=== PATIENT | male | born 1980 | race Native Hawaiian/Other Pacific Islander ===

== ENCOUNTER 2022-01-25 08:36 | Observation (INO) | payer OTHER ==
--- NOTE | 2022-01-25 08:43 | ERPHSYRPT ---
- History of Present Illness Time Seen by Provider: 01/25/22 08:42 Historian: patient Exam Limitations: no limitations Physician History: This is a 41-year-old white male patient has no known drug allergies, takes no medications chronically and has had no abdominal surgeries and presents to the emergency room with 3-day history of persistent, unchanging right lower quadrant abdominal pain. He has not had diarrhea. His last bowel movement was this morning and it was black. He is nauseated but has not been vomiting. He has not had fevers. He has no chest pain he has not had cough. Timing/Duration: day(s) (3) Activities at Onset: none Quality: sharpness Abdominal Pain Onset Location: RLQ Pain Radiation: no radiation Severity of Pain-Max: moderate Severity of Pain-Current: moderate Modifying Factors: Improves With: nothing Associated Symptoms: loss of appetite, nausea, No chest pain, No diarrhea, No fever/chills, No shortness of breath, No vomiting Previous symptoms: no prior history Allergies/Adverse Reactions: No Known Drug Allergies Allergy (Verified 01/25/22 08:40) Home Medications: No Reportable Medications [No Reported Medications] 01/25/22 [History] Travel Risk - International Travel Have you traveled outside of the country in past 3 weeks: No - Coronavirus Screening Are you exhibiting any of the following symptoms?: No Close contact with a COVID-19 positive Pt in past 14-21 Days: No - Review of Systems Constitutional: No Symptoms Eyes: No Symptoms Ears, Nose, & Throat: No Symptoms Respiratory: No Symptoms Cardiac: No Symptoms Abdominal/Gastrointestinal: Abdominal Pain (Right lower quadrant), Nausea, No Vomiting, No Diarrhea, No Constipation Genitourinary Symptoms: No Symptoms Musculoskeletal: No Symptoms Skin: No Symptoms Neurological: No Symptoms Psychological: No Symptoms Endocrine: No Symptoms Hematologic/Lymphatic: No Symptoms Immunological/Allergic: No Symptoms All Other Systems: Reviewed and Negative - Past Medical History Pertinent Past Medical History: No - Past Surgical History Past Surgical History: No - Nursing Vital Signs Nursing Vital Signs: Initial Vital Signs Temperature 98.3 F 01/25/22 08:42 Pulse Rate 105 H 01/25/22 08:42 Respiratory Rate 20 01/25/22 08:42 Blood Pressure 134/85 01/25/22 08:42 O2 Sat by Pulse Oximetry 98 01/25/22 08:42 Pain Scale Pain Intensity 5 - Physical Exam General Appearance: no apparent distress, alert, anxiety Eye Exam: PERRL/EOMI, eyes nml inspection Ears, Nose, Throat Exam: normal ENT inspection, moist mucous membranes Neck Exam: normal inspection, non-tender, supple, full range of motion Respiratory Exam: normal breath sounds, lungs clear, airway intact, No chest tenderness, No respiratory distress Cardiovascular Exam: regular rate/rhythm, normal heart sounds, normal peripheral pulses Gastrointestinal/Abdomen Exam: soft, normal bowel sounds, tenderness (Right lower quadrant), guarding (Right lower quadrant), rebound Rectal Exam: not done Back Exam: normal inspection, normal range of motion, No CVA tenderness, No vertebral tenderness Extremity Exam: normal inspection, normal range of motion, pelvis stable Neurologic Exam: alert, oriented x 3, cooperative, computerized table cutter II-XII nml as tested, normal mood/affect, nml cerebellar function, nml station & gait, sensation nml Skin Exam: normal color, warm, dry Lymphatic Exam: No adenopathy SpO2 Interpretation: normal O2 Delivery: Room Air - Course Nursing assessment & vital signs reviewed: Yes Ordered Tests: Active Orders 24 hr Category Date Time Status ABDOMEN AND PELVIS W/0 CONTRAS [CT] Stat Exams 01/25/22 08:55 Taken AMYLASE Stat Lab 01/25/22 09:00 Completed CBC W DIFF Stat Lab 01/25/22 09:00 Completed CMP Stat Lab 01/25/22 09:00 Completed LIPASE Stat Lab 01/25/22 09:00 Completed Lactic Acid Stat Lab 01/25/22 09:00 Completed UA W/RFX CULTURE Stat Lab 01/25/22 Ordered Transfer Order Routine Transfer 01/25/22 Ordered Medication Summary Generic Name Dose Route Start Last Admin Trade Name Freq PRN Reason Stop Dose Admin Piperacillin Sod/Tazobactam 100 mls @ 200 mls/hr 01/25/22 10:37 01/25/22 10:43 Sod 3.375 gm/ Sodium Chloride IV 01/25/22 11:06 200 mls/hr STAT ONE Administration Discontinued Medications Generic Name Dose Route Start Last Admin Trade Name Freq PRN Reason Stop Dose Admin Hydromorphone HCl 0.5 mg 01/25/22 08:55 01/25/22 09:13 Hydromorphone 1 Mg/1ml Inj 1 Mg/Ml Syringe IV 01/25/22 08:56 0.5 mg STAT ONE Administration Hydromorphone HCl Confirm 01/25/22 09:07 Hydromorphone 1 Mg/1ml Inj 1 Mg/Ml Syringe Administered 01/25/22 09:08 Dose 1 mg .ROUTE .STK-MED ONE Sodium Chloride Confirm 01/25/22 10:42 Sodium Chloride 100ml Mini-Bag Plus Administered 01/25/22 10:43 Dose 100 mls @ ud IV .STK-MED ONE Ondansetron HCl 4 mg 01/25/22 08:55 01/25/22 09:02 Zofran 4 Mg/Udtablet Orally Disintegrating PO 01/25/22 08:56 4 mg STAT ONE Administration Ondansetron HCl Confirm 01/25/22 09:01 Zofran 4 Mg/Udtablet Orally Disintegrating Administered 01/25/22 09:02 Dose 4 mg .ROUTE .STK-MED ONE Pantoprazole Sodium 40 mg 01/25/22 08:55 01/25/22 09:02 Pantoprazole 40 Mg Vial IV 01/25/22 08:56 40 mg STAT ONE Administration Pantoprazole Sodium Confirm 01/25/22 09:01 Pantoprazole 40 Mg Vial Administered 01/25/22 09:02 Dose 40 mg IV .STK-MED ONE Piperacillin Sod/Tazobactam Sod Confirm 01/25/22 10:42 Piperacillin/Tazobactam Sodium 3.375 Gm Vial Administered 01/25/22 10:43 Dose 3.375 gm IV .STK-MED ONE Lab/Rad Data: Laboratory Result Diagrams 01/25/22 09:00 01/25/22 09:00 Laboratory Results 01/25/22 01/25/22 01/25/22 Range/Units 09:00 09:00 09:00 WBC 12.6 H (4.0-10.5) x10^3/uL RBC 5.12 (4.1-5.6) x10^6/uL Hgb 16.1 (12.5-18.0) g/dL Hct 46.9 (42-50) % MCV 91.6 (78-100) fL MCH 31.4 (26-32) pg MCHC 34.3 (32-36) g/dL RDW 12.5 (11.5-14.0) % Plt Count 205 (150-450) x10^3/uL MPV 11.1 H (7.5-11.0) fL Gran % 80.3 H (36.0-66.0) % Immature Gran % (Auto) 0.3 (0.00-0.4) % Nucleat RBC Rel Count 0.0 (0.00-0.1) % Eos # (Auto) 0.03 (0-0.5) x10^3/uL Immature Gran # (Auto) 0.04 H (0.00-0.03) x10^3u/L Absolute Lymphs (auto) 1.58 (1.0-4.6) x10^3/uL Absolute Monos (auto) 0.82 (0.0-1.3) x10^3/uL Absolute Nucleated RBC 0.00 (0.00-0.01) x10^3u/L Lymphocytes % 12.5 L (24.0-44.0) % Monocytes % 6.5 (0.0-12.0) % Eosinophils % 0.2 (0.00-5.0) % Basophils % 0.2 (0.0-0.4) % Absolute Granulocytes 10.09 H (1.4-6.9) x10^3/uL Basophils # 0.03 (0-0.4) x10^3/uL Sodium 136 L (137-145) mmol/L Potassium 3.5 (3.5-5.1) mmol/L Chloride 99 (98-107) mmol/L Carbon Dioxide 26 (22-30) mmol/L Anion Gap 14.8 (5-15) MEQ/L BUN 16 (9-20) mg/dL Creatinine 0.70 (0.66-1.25) mg/dL Estimated GFR > 60.0 ML/MIN Glucose 138 H (74-106) mg/dL Lactic Acid 1.7 (0.4-2.0) Calcium 9.5 (8.4-10.2) mg/dL Total Bilirubin 1.50 H (0.2-1.3) mg/dL AST 18 (17-59) U/L ALT 25 (0-50) U/L Alkaline Phosphatase 105 (38-126) U/L Serum Total Protein 8.5 H (6.3-8.2) g/dL Albumin 4.9 (3.5-5.0) g/dL Amylase 68 (30-110) U/L Lipase 50 (23-300) U/L - Progress Progress: improved, pain not gone completely Progress Note: 01/25/22 10:36 ct scan a/p without positive for acute appendicitis 01/25/22 10:51 Medical decision making: This patient has acute appendicitis. I spoke with surgeon Dr. Edge who will take this patient to the operating room today to perform an appendectomy. Patient will be admitted to Dr. Bryant. I spoke with Dr. Bryant as well. We will place him on n.p.o., intravenous fluid and his intravenous antibiotics. We will provide her with antiemetics and pain medication. We have contacted the nurse corrugator supervisor to make them aware that Dr. Umanzor will be in this afternoon to perform the appendectomy. The exact time is unknown. Discussed with : Stephanie Ahumada Counseled pt/family regarding: lab results, diagnosis, rad results - Departure Departure Disposition: In-patient Admission Clinical Impression: Acute appendicitis Condition: Stable Critical Care Time: No Referrals: ERIC MORRIS [Primary Care Provider] - Follow up/PCP as directed
[2022-01-25] MEDS ORDERED: PROTONIX 40 MG IV IV ONE ×2 (08:55→09:01)
[2022-01-25] MEDS ORDERED: Hydromorphone 1 mg/ml Injection IV ONE ×3 (08:55→13:07)
[2022-01-25] MEDS ORDERED: ZOFRAN ODT 4 MG PO ONE (08:55)
[2022-01-25] MEDS ORDERED: ZOFRAN ODT 4 MG ONE (09:01)
[2022-01-25 09:06] LABS: Absolute Neutrophil Ct (ANC) 10.09 x10^3/uL (1.4-6.9); Basophil (Absolute #) 0.03 x10^3/uL (0-0.4); Eosinophil % 0.2 % (0.00-5.0); Eosinophil (Absolute #) 0.03 x10^3/uL (0-0.5); Hematocrit 46.9 % (42-50); Hemoglobin 16.1 g/dL (12.5-18.0); Lymphocyte (Absolute #) 1.58 x10^3/uL (1.0-4.6); Lymphocytes % 12.5 % (24.0-44.0); Mean Cell Volume 91.6 fL (78-100); Mean Corpuscular Hemoglobin 31.4 pg (26-32); Mean Corpuscular Hgb Concent. 34.3 g/dL (32-36); Mean Platelet Volume 11.1 fL (7.5-11.0); Monocyte (Absolute #) 0.82 x10^3/uL (0.0-1.3); Monocytes % 6.5 % (0.0-12.0); Neutrophil % 80.3 % (36.0-66.0); Platelet Count 205 x10^3/uL (150-450); Red Blood Count 5.12 x10^6/uL (4.1-5.6); Red Cell Distribution Width 12.5 % (11.5-14.0); White Blood Count 12.6 x10^3/uL (4.0-10.5)
[2022-01-25] MEDS ORDERED: Hydromorphone 1 mg/ml Injection ONE ×2 (09:07→11:00)
[2022-01-25 09:21] LABS: ALBUMIN 4.9 g/dL (3.5-5.0); ALKALINE PHOSPHATASE 105 U/L (38-126); AMYLASE 68 U/L (30-110); ANION GAP 14.8 MEQ/L (5-15); BLOOD UREA NITROGEN 16 mg/dL (9-20); CHLORIDE 99 mmol/L (98-107); Calcium 9.5 mg/dL (8.4-10.2); Carbon Dioxide 26 mmol/L (22-30); EST GLOMERULAR FILTRATION RATE > 60.0 ML/MIN; Glucose 138 mg/dL (74-106); LIPASE 50 U/L (23-300); Potassium 3.5 mmol/L (3.5-5.1); SGOT/AST 18 U/L (17-59); SGPT/ALT 25 U/L (0-50); SODIUM 136 mmol/L (137-145); Total Protein 8.5 g/dL (6.3-8.2)
[2022-01-25] MEDS ORDERED: PIPERACILLIN/TAZOBACTAM 3.375 GM in Sodium Chloride 100ML MINI-BAG PLUS 100 ML IV ONE (10:37)
[2022-01-25] MEDS ORDERED: Sodium Chloride 100ML MINI-BAG PLUS 100 ML IV ONE (10:42)
[2022-01-25] MEDS ORDERED: PIPERACILLIN/TAZOBACTAM IV ONE (10:42)
[2022-01-25 11:38] LABS: INFLUENZA A NEGATIVE (NEGATIVE); INFLUENZA B NEGATIVE (NEGATIVE); RESPIRATORY SYNCTIAL VIRUS NEGATIVE (Negative); SARS-CoV-2 Xpert Express NEGATIVE (NEGATIVE)
[2022-01-25] MEDS ORDERED: Hydromorphone 1 mg/ml Injection IV PRN (12:40)
[2022-01-25] MEDS ORDERED: Zofran 4 MG/2 ML VIAL IV PRN (12:40)
[2022-01-25] MEDS ORDERED: FEVERALL 650 MG PR PRN (12:40)
[2022-01-25] MEDS: Sodium Chloride 0.9% 1000 ML 1,000 ML IV SCH ×2 (12:49→17:16)
[2022-01-25] MEDS: PIPERACILLIN/TAZOBACTAM 3.375 GM in Sodium Chloride 100ML MINI-BAG PLUS 100 ML IV SCH ×3 (13:04→23:55)
[2022-01-25] MEDS ORDERED: PHARMACY DOSING REQUIRED: DILAUDID PCA IV PRN (13:36)
[2022-01-25] MEDS ORDERED: HYDROMORPHONE 30 MG/30 ML-NS IV PRN (13:49)
[2022-01-25] MEDS ORDERED: MEFOXIN 2 GM PREMIX** 2 GM/50 ML ML IV SCH (14:30)
[2022-01-25] MEDS ORDERED: Sensorcaine 0.25% 10 ML ONE (14:44)
[2022-01-25] MEDS ORDERED: BRIDION 200MG/2ML IV ONE (14:58)
[2022-01-25] MEDS ORDERED: TORAdol 30 mg Injection ONE (14:58)
[2022-01-25] MEDS ORDERED: DIPRIVAN 200 MG/20 ML IV ONE (14:58)
[2022-01-25] MEDS ORDERED: Decadron 4 MG INJ ONE (14:58)
[2022-01-25] MEDS ORDERED: Xylocaine-Mpf 2% 5 Ml Vial ONE (14:58)
[2022-01-25] MEDS ORDERED: Zofran 4 MG/2 ML VIAL ONE (14:58)
[2022-01-25] MEDS ORDERED: Zemuron 100 MG/10 ML ONE (14:58)
[2022-01-25] MEDS ORDERED: SUBLIMAZE 100 MCG/2 ML ONE ×2 (14:58→15:29)
[2022-01-25] MEDS ORDERED: Lactated Ringers 1,000 ML IV SCH (15:00)
[2022-01-25] MEDS ORDERED: MORPHINE SULFATE 4 MG INJ IV PRN (16:51)
[2022-01-25] MEDS: NORCO 5/325 MG PO PRN ×2 (18:09→22:22)
[2022-01-25 20:42] LABS: Appearance CLEAR (CLEAR)
[2022-01-25 20:43] LABS: Bilirubin NEGATIVE (NEGATIVE); Dipstick done @ ? MAIN LAB; Glucose NEGATIVE (NEGATIVE); Ketones MODERATE-40 (NEGATIVE); Nitrite NEGATIVE (NEGATIVE); Protein,Urine Dip TRACE (Negative); RBC NEGATIVE Ery/ul (0-5); Specific Gravity 1.015 (1.005-1.025); Urobilinogen 0.2 mg/dL (0-1)
[2022-01-25 20:44] LABS: Mucus SLIGHT /HPF (NEGATIVE); RBC 0-2 /HPF (0-2)
[2022-01-25 20:45] LABS: Urine Cultured Indicated? NO
--- NOTE | 2022-01-25 20:50 | XRAY ---
Indication: Right lower quadrant pain and nausea. Multiple contiguous axial images obtained through the abdomen and pelvis without contrast. Comparison: None Lung bases clear. Heart not enlarged. Noncontrasted stomach and bowel loops appear nonobstructed. The distal appendix is prominent up to 1.5 cm with periappendiceal stranding favoring acute appendicitis. No free fluid/air. Remaining liver, gallbladder, pancreas, spleen, adrenal glands, kidneys, ureters, bladder, and aorta are unremarkable for noncontrast exam. Osseous structures intact. Impression: CT findings as detailed favoring acute appendicitis. Comment: Preliminary interpretation made by [facility]. No critical discrepancy.
[2022-01-26] MEDS: NORCO 5/325 MG PO PRN ×5 (03:52→22:11)
[2022-01-26] MEDS: PIPERACILLIN/TAZOBACTAM 3.375 GM in Sodium Chloride 100ML MINI-BAG PLUS 100 ML IV SCH ×3 (05:37→18:46)
[2022-01-26] MEDS: Sodium Chloride 0.9% 1000 ML 1,000 ML IV SCH ×2 (05:37→19:22)
[2022-01-26 06:01] LABS: Absolute Neutrophil Ct (ANC) 10.23 x10^3/uL (1.4-6.9); Basophil (Absolute #) 0.02 x10^3/uL (0-0.4); Eosinophil (Absolute #) 0 x10^3/uL (0-0.5); Hematocrit 46.2 % (42-50); Hemoglobin 15.2 g/dL (12.5-18.0); Lymphocyte (Absolute #) 0.77 x10^3/uL (1.0-4.6); Lymphocytes % 6.6 % (24.0-44.0); Mean Cell Volume 96.5 fL (78-100); Mean Corpuscular Hemoglobin 31.7 pg (26-32); Mean Corpuscular Hgb Concent. 32.9 g/dL (32-36); Mean Platelet Volume 11.5 fL (7.5-11.0); Monocyte (Absolute #) 0.58 x10^3/uL (0.0-1.3); Neutrophil % 87.9 % (36.0-66.0); Platelet Count 180 x10^3/uL (150-450); Red Blood Count 4.79 x10^6/uL (4.1-5.6); White Blood Count 11.6 x10^3/uL (4.0-10.5)
--- NOTE | 2022-01-26 07:40 | PCM.SSS ---
History of Present Illness - Chief Complaint Chief Complaint: acute appendicitis History of Present Illness: 41yo male with no local physician, arrived with abd pain. ct scan showed acute appendicitis. had surgery to remove yesterday, tolerating po and ambulating. no complications. has mild serous fluid in AISSATOU drain. - Review of Systems Constitutional: No Symptoms Respiratory: No Cough, No Short Of Breath Cardiac: No Chest Pain, No Edema, No Syncope Abdominal/Gastrointestinal: Abdominal Pain (post op pain controlled), No Nausea, No Vomiting, No Diarrhea Genitourinary Symptoms: No Dysuria Medications & Allergies Home Medications: Home Medication List Hydrocodone/Acetaminophen [Hydrocodone-Acetamin 5-325 mg] 1 tab PO Q4HPRN PRN #18 tablet MDD 6 01/25/22 [Rx] Allergies/Adverse Reactions: Allergies Allergy/AdvReac Type Severity Reaction Status Date / Time No Known Drug Allergies Allergy Verified 01/25/22 13:10 - Past Medical History Past Medical History: No Pyscho-Social History: Other Comment: PTSD, Patient states that he had his thyroid "radiated" when he was in the but he is unsure why, also states that the wanted to remove his thyroid but he declined and he can not remember the reason why they wanted it removed either - Past Surgical History Past Surgical History: No - Social History Smoking Status: Former smoker Exposure to second hand smoke: No Alcohol: Occasionally Drug Use: marijuana - Physical Exam Vital Signs: Vital Signs - 24 hr Temp Pulse Resp BP Pulse Ox 01/26/22 04:40 97 01/26/22 04:00 97.7 F 99 H 16 120/73 95 01/26/22 03:00 97.1 F 96 H 20 118/63 96 01/25/22 23:00 97.1 F 96 H 20 118/63 96 01/25/22 18:45 97.3 F 108 H 134/69 96 01/25/22 17:45 97.5 F 105 H 16 133/58 94 L 01/25/22 17:13 97.8 F 105 H 18 121/60 93 L 01/25/22 17:03 97 01/25/22 16:45 97.5 F 108 H 18 130/68 97 01/25/22 16:30 97.7 F 108 H 18 132/69 93 L 01/25/22 12:55 97.7 F 105 H 16 139/80 95 01/25/22 12:52 97.7 F 105 H 16 139/80 95 01/25/22 12:04 99 H 20 124/76 95 01/25/22 11:00 92 H 20 112/81 96 01/25/22 10:39 97.7 F 105 H 16 139/80 95 01/25/22 09:40 97 H 16 126/92 98 01/25/22 08:42 98.3 F 105 H 20 134/85 98 General Appearance: no apparent distress Neurologic Exam: alert, oriented x 3 Respiratory Exam: normal breath sounds, lungs clear, No respiratory distress Cardiovascular Exam: regular rate/rhythm, normal heart sounds, normal peripheral pulses Gastrointestinal/Abdomen Exam: soft, other (dressing c/d/i, scant serous fluid in AISSATOU) Results - Labs Lab/Micro Results: Lab Results-Last 24 Hours 01/25/22 01/25/22 01/25/22 Range/Units 09:00 09:00 09:00 WBC 12.6 H (4.0-10.5) x10^3/uL RBC 5.12 (4.1-5.6) x10^6/uL Hgb 16.1 (12.5-18.0) g/dL Hct 46.9 (42-50) % MCV 91.6 (78-100) fL MCH 31.4 (26-32) pg MCHC 34.3 (32-36) g/dL RDW 12.5 (11.5-14.0) % Plt Count 205 (150-450) x10^3/uL MPV 11.1 H (7.5-11.0) fL Gran % 80.3 H (36.0-66.0) % Immature Gran % (Auto) 0.3 (0.00-0.4) % Nucleat RBC Rel Count 0.0 (0.00-0.1) % Eos # (Auto) 0.03 (0-0.5) x10^3/uL Immature Gran # (Auto) 0.04 H (0.00-0.03) x10^3u/L Absolute Lymphs (auto) 1.58 (1.0-4.6) x10^3/uL Absolute Monos (auto) 0.82 (0.0-1.3) x10^3/uL Absolute Nucleated RBC 0.00 (0.00-0.01) x10^3u/L Lymphocytes % 12.5 L (24.0-44.0) % Monocytes % 6.5 (0.0-12.0) % Eosinophils % 0.2 (0.00-5.0) % Basophils % 0.2 (0.0-0.4) % Absolute Granulocytes 10.09 H (1.4-6.9) x10^3/uL Basophils # 0.03 (0-0.4) x10^3/uL Sodium 136 L (137-145) mmol/L Potassium 3.5 (3.5-5.1) mmol/L Chloride 99 (98-107) mmol/L Carbon Dioxide 26 (22-30) mmol/L Anion Gap 14.8 (5-15) MEQ/L BUN 16 (9-20) mg/dL Creatinine 0.70 (0.66-1.25) mg/dL Estimated GFR > 60.0 ML/MIN Glucose 138 H (74-106) mg/dL Lactic Acid 1.7 (0.4-2.0) Calcium 9.5 (8.4-10.2) mg/dL Total Bilirubin 1.50 H (0.2-1.3) mg/dL AST 18 (17-59) U/L ALT 25 (0-50) U/L Alkaline Phosphatase 105 (38-126) U/L Serum Total Protein 8.5 H (6.3-8.2) g/dL Albumin 4.9 (3.5-5.0) g/dL Amylase 68 (30-110) U/L Lipase 50 (23-300) U/L Urinalys Dipstick Clnc Urine Color (YELLOW) Urine Appearance (CLEAR) Urine pH (5-6) Ur Specific [place] (1.005-1.025) POC Urine Protein Conf (Negative) Urine Ketones (NEGATIVE) Urine Nitrite (NEGATIVE) Urine Bilirubin (NEGATIVE) Urine Urobilinogen (0-1) mg/dL Urine Leukocytes (NEGATIVE) Urine WBC (Auto) (0-5) /HPF Urine RBC (Auto) (0-2) /HPF U Epithel Cells (Auto) (FEW) /HPF Urine Bacteria (Auto) (NEGATIVE) /HPF Urine RBC (0-5) Lacho/ul Urine Mucus (Auto) (NEGATIVE) /HPF Ur Culture Indicated? Urine Glucose (NEGATIVE) mg/dL Influenza Type A Ag (NEGATIVE) Influenza Type B Ag (NEGATIVE) RSV (PCR) (Negative) SARS-CoV-2 (PCR) (NEGATIVE) 01/25/22 01/25/22 01/26/22 Range/Units 11:01 20:34 05:59 WBC 11.6 H (4.0-10.5) x10^3/uL RBC 4.79 (4.1-5.6) x10^6/uL Hgb 15.2 (12.5-18.0) g/dL Hct 46.2 (42-50) % MCV 96.5 (78-100) fL MCH 31.7 (26-32) pg MCHC 32.9 (32-36) g/dL RDW 13.0 (11.5-14.0) % Plt Count 180 (150-450) x10^3/uL MPV 11.5 H (7.5-11.0) fL Gran % 87.9 H (36.0-66.0) % Immature Gran % (Auto) 0.3 (0.00-0.4) % Nucleat RBC Rel Count 0.0 (0.00-0.1) % Eos # (Auto) 0 (0-0.5) x10^3/uL Immature Gran # (Auto) 0.04 H (0.00-0.03) x10^3u/L Absolute Lymphs (auto) 0.77 L (1.0-4.6) x10^3/uL Absolute Monos (auto) 0.58 (0.0-1.3) x10^3/uL Absolute Nucleated RBC 0.00 (0.00-0.01) x10^3u/L Lymphocytes % 6.6 L (24.0-44.0) % Monocytes % 5.0 (0.0-12.0) % Eosinophils % 0.0 (0.00-5.0) % Basophils % 0.2 (0.0-0.4) % Absolute Granulocytes 10.23 H (1.4-6.9) x10^3/uL Basophils # 0.02 (0-0.4) x10^3/uL Sodium (137-145) mmol/L Potassium (3.5-5.1) mmol/L Chloride (98-107) mmol/L Carbon Dioxide (22-30) mmol/L Anion Gap (5-15) MEQ/L BUN (9-20) mg/dL Creatinine (0.66-1.25) mg/dL Estimated GFR ML/MIN Glucose (74-106) mg/dL Lactic Acid (0.4-2.0) Calcium (8.4-10.2) mg/dL Total Bilirubin (0.2-1.3) mg/dL AST (17-59) U/L ALT (0-50) U/L Alkaline Phosphatase (38-126) U/L Serum Total Protein (6.3-8.2) g/dL Albumin (3.5-5.0) g/dL Amylase (30-110) U/L Lipase (23-300) U/L Urinalys Dipstick Clnc MAIN LAB Urine Color YELLOW (YELLOW) Urine Appearance CLEAR (CLEAR) Urine pH 6.0 (5-6) Ur Specific [place] 1.015 (1.005-1.025) POC Urine Protein Conf TRACE (Negative) Urine Ketones MODERATE-40 (NEGATIVE) Urine Nitrite NEGATIVE (NEGATIVE) Urine Bilirubin NEGATIVE (NEGATIVE) Urine Urobilinogen 0.2 (0-1) mg/dL Urine Leukocytes NEGATIVE (NEGATIVE) Urine WBC (Auto) 3-5 (0-5) /HPF Urine RBC (Auto) 0-2 (0-2) /HPF U Epithel Cells (Auto) NONE (FEW) /HPF Urine Bacteria (Auto) NONE (NEGATIVE) /HPF Urine RBC NEGATIVE (0-5) Lacho/ul Urine Mucus (Auto) SLIGHT (NEGATIVE) /HPF Ur Culture Indicated? NO Urine Glucose NEGATIVE (NEGATIVE) mg/dL Influenza Type A Ag NEGATIVE (NEGATIVE) Influenza Type B Ag NEGATIVE (NEGATIVE) RSV (PCR) NEGATIVE (Negative) SARS-CoV-2 (PCR) NEGATIVE (NEGATIVE) - Radiology Impressions Radiology Exams & Impressions: Radiology Procedures Category Date Time Status ABDOMEN AND PELVIS W/0 CONTRAS [CT] Stat Exams 01/25/22 08:55 Completed Assessment/Plan (1) Acute appendicitis Current Visit: Yes Status: Acute Assessment & Plan: doing well, home whe n ok with surgery, has rx for augmentin on chart and rx for norco was sent to pharmacy Code(s): K35.80 - UNSPECIFIED ACUTE APPENDICITIS Hospital Summary - Vitals & Intake/Output Vital Signs: Vital Signs Temperature 97.7 F 01/26/22 04:00 Pulse Rate 99 H 01/26/22 04:00 Respiratory Rate 16 01/26/22 04:00 Blood Pressure 120/73 01/26/22 04:00 O2 Sat by Pulse Oximetry 97 01/26/22 04:40 Intake & Output: Intake & Output 01/23/22 01/24/22 01/25/22 01/26/22 11:59 11:59 11:59 11:59 Intake Total 1459 Output Total 565 Balance 894 Weight 94 kg 94 kg - Lab Result Diagrams: 01/26/22 05:59 01/25/22 09:00 Lab Results-Last 24 Hrs: Lab Results-Last 24 Hours 01/25/22 01/25/22 01/25/22 Range/Units 09:00 09:00 09:00 WBC 12.6 H (4.0-10.5) x10^3/uL RBC 5.12 (4.1-5.6) x10^6/uL Hgb 16.1 (12.5-18.0) g/dL Hct 46.9 (42-50) % MCV 91.6 (78-100) fL MCH 31.4 (26-32) pg MCHC 34.3 (32-36) g/dL RDW 12.5 (11.5-14.0) % Plt Count 205 (150-450) x10^3/uL MPV 11.1 H (7.5-11.0) fL Gran % 80.3 H (36.0-66.0) % Immature Gran % (Auto) 0.3 (0.00-0.4) % Nucleat RBC Rel Count 0.0 (0.00-0.1) % Eos # (Auto) 0.03 (0-0.5) x10^3/uL Immature Gran # (Auto) 0.04 H (0.00-0.03) x10^3u/L Absolute Lymphs (auto) 1.58 (1.0-4.6) x10^3/uL Absolute Monos (auto) 0.82 (0.0-1.3) x10^3/uL Absolute Nucleated RBC 0.00 (0.00-0.01) x10^3u/L Lymphocytes % 12.5 L (24.0-44.0) % Monocytes % 6.5 (0.0-12.0) % Eosinophils % 0.2 (0.00-5.0) % Basophils % 0.2 (0.0-0.4) % Absolute Granulocytes 10.09 H (1.4-6.9) x10^3/uL Basophils # 0.03 (0-0.4) x10^3/uL Sodium 136 L (137-145) mmol/L Potassium 3.5 (3.5-5.1) mmol/L Chloride 99 (98-107) mmol/L Carbon Dioxide 26 (22-30) mmol/L Anion Gap 14.8 (5-15) MEQ/L BUN 16 (9-20) mg/dL Creatinine 0.70 (0.66-1.25) mg/dL Estimated GFR > 60.0 ML/MIN Glucose 138 H (74-106) mg/dL Lactic Acid 1.7 (0.4-2.0) Calcium 9.5 (8.4-10.2) mg/dL Total Bilirubin 1.50 H (0.2-1.3) mg/dL AST 18 (17-59) U/L ALT 25 (0-50) U/L Alkaline Phosphatase 105 (38-126) U/L Serum Total Protein 8.5 H (6.3-8.2) g/dL Albumin 4.9 (3.5-5.0) g/dL Amylase 68 (30-110) U/L Lipase 50 (23-300) U/L Urinalys Dipstick Clnc Urine Color (YELLOW) Urine Appearance (CLEAR) Urine pH (5-6) Ur Specific [place] (1.005-1.025) POC Urine Protein Conf (Negative) Urine Ketones (NEGATIVE) Urine Nitrite (NEGATIVE) Urine Bilirubin (NEGATIVE) Urine Urobilinogen (0-1) mg/dL Urine Leukocytes (NEGATIVE) Urine WBC (Auto) (0-5) /HPF Urine RBC (Auto) (0-2) /HPF U Epithel Cells (Auto) (FEW) /HPF Urine Bacteria (Auto) (NEGATIVE) /HPF Urine RBC (0-5) Lacho/ul Urine Mucus (Auto) (NEGATIVE) /HPF Ur Culture Indicated? Urine Glucose (NEGATIVE) mg/dL Influenza Type A Ag (NEGATIVE) Influenza Type B Ag (NEGATIVE) RSV (PCR) (Negative) SARS-CoV-2 (PCR) (NEGATIVE) 01/25/22 01/25/22 01/26/22 Range/Units 11:01 20:34 05:59 WBC 11.6 H (4.0-10.5) x10^3/uL RBC 4.79 (4.1-5.6) x10^6/uL Hgb 15.2 (12.5-18.0) g/dL Hct 46.2 (42-50) % MCV 96.5 (78-100) fL MCH 31.7 (26-32) pg MCHC 32.9 (32-36) g/dL RDW 13.0 (11.5-14.0) % Plt Count 180 (150-450) x10^3/uL MPV 11.5 H (7.5-11.0) fL Gran % 87.9 H (36.0-66.0) % Immature Gran % (Auto) 0.3 (0.00-0.4) % Nucleat RBC Rel Count 0.0 (0.00-0.1) % Eos # (Auto) 0 (0-0.5) x10^3/uL Immature Gran # (Auto) 0.04 H (0.00-0.03) x10^3u/L Absolute Lymphs (auto) 0.77 L (1.0-4.6) x10^3/uL Absolute Monos (auto) 0.58 (0.0-1.3) x10^3/uL Absolute Nucleated RBC 0.00 (0.00-0.01) x10^3u/L Lymphocytes % 6.6 L (24.0-44.0) % Monocytes % 5.0 (0.0-12.0) % Eosinophils % 0.0 (0.00-5.0) % Basophils % 0.2 (0.0-0.4) % Absolute Granulocytes 10.23 H (1.4-6.9) x10^3/uL Basophils # 0.02 (0-0.4) x10^3/uL Sodium (137-145) mmol/L Potassium (3.5-5.1) mmol/L Chloride (98-107) mmol/L Carbon Dioxide (22-30) mmol/L Anion Gap (5-15) MEQ/L BUN (9-20) mg/dL Creatinine (0.66-1.25) mg/dL Estimated GFR ML/MIN Glucose (74-106) mg/dL Lactic Acid (0.4-2.0) Calcium (8.4-10.2) mg/dL Total Bilirubin (0.2-1.3) mg/dL AST (17-59) U/L ALT (0-50) U/L Alkaline Phosphatase (38-126) U/L Serum Total Protein (6.3-8.2) g/dL Albumin (3.5-5.0) g/dL Amylase (30-110) U/L Lipase (23-300) U/L Urinalys Dipstick Clnc MAIN LAB Urine Color YELLOW (YELLOW) Urine Appearance CLEAR (CLEAR) Urine pH 6.0 (5-6) Ur Specific [place] 1.015 (1.005-1.025) POC Urine Protein Conf TRACE (Negative) Urine Ketones MODERATE-40 (NEGATIVE) Urine Nitrite NEGATIVE (NEGATIVE) Urine Bilirubin NEGATIVE (NEGATIVE) Urine Urobilinogen 0.2 (0-1) mg/dL Urine Leukocytes NEGATIVE (NEGATIVE) Urine WBC (Auto) 3-5 (0-5) /HPF Urine RBC (Auto) 0-2 (0-2) /HPF U Epithel Cells (Auto) NONE (FEW) /HPF Urine Bacteria (Auto) NONE (NEGATIVE) /HPF Urine RBC NEGATIVE (0-5) Lacho/ul Urine Mucus (Auto) SLIGHT (NEGATIVE) /HPF Ur Culture Indicated? NO Urine Glucose NEGATIVE (NEGATIVE) mg/dL Influenza Type A Ag NEGATIVE (NEGATIVE) Influenza Type B Ag NEGATIVE (NEGATIVE) RSV (PCR) NEGATIVE (Negative) SARS-CoV-2 (PCR) NEGATIVE (NEGATIVE) - Radiology Exams Ordered Rad Exams-Entire Visit: Radiology Procedures Category Date Time Status ABDOMEN AND PELVIS W/0 CONTRAS [CT] Stat Exams 01/25/22 08:55 Completed - Procedures and Test Procedures and Tests throughout Hospitalization: Therapy Orders & Screens 01/25/22 17:02 Oxygen NASAL CANNULA 2 lpm Comment: Diagnosis: acute appendicitis - Discharge Disposition: Home, Self-Care Condition: Stable Prescriptions: New Hydrocodone/Acetaminophen [Hydrocodone-Acetamin 5-325 mg] 1 tab PO Q4HPRN PRN #18 tablet MDD 6 PRN Reason: Pain Follow up with: ERIC MORRIS [Primary Care Provider] -
[2022-01-27] MEDS: PIPERACILLIN/TAZOBACTAM 3.375 GM in Sodium Chloride 100ML MINI-BAG PLUS 100 ML IV SCH ×3 (00:05→11:59)
[2022-01-27] MEDS: NORCO 5/325 MG PO PRN ×3 (02:05→12:46)
[2022-01-27 05:09] LABS: Absolute Neutrophil Ct (ANC) 5.15 x10^3/uL (1.4-6.9); Basophil (Absolute #) 0.02 x10^3/uL (0-0.4); Eosinophil (Absolute #) 0.07 x10^3/uL (0-0.5); Hematocrit 39.7 % (42-50); Hemoglobin 12.9 g/dL (12.5-18.0); Lymphocyte (Absolute #) 1.65 x10^3/uL (1.0-4.6); Lymphocytes % 22.4 % (24.0-44.0); Mean Cell Volume 95.2 fL (78-100); Mean Corpuscular Hemoglobin 30.9 pg (26-32); Mean Corpuscular Hgb Concent. 32.5 g/dL (32-36); Mean Platelet Volume 11.2 fL (7.5-11.0); Monocyte (Absolute #) 0.44 x10^3/uL (0.0-1.3); Platelet Count 180 x10^3/uL (150-450); Red Blood Count 4.17 x10^6/uL (4.1-5.6); Red Cell Distribution Width 13.2 % (11.5-14.0); White Blood Count 7.4 x10^3/uL (4.0-10.5)
--- NOTE | 2022-01-27 08:23 | PCM.DS ---
Discharge Summary Date of Admission: 01/25/22 12:34 Admitting Physician: GIANNA SMITH Primary Care Provider: ERIC MORRIS Allergies Allergies No Known Drug Allergies Allergy (Verified 01/25/22 13:10) Hospital Summary - Hospital Course Hospital Course: patient admitted with acute appenedicitis, had laparoscopic appendectomy by Dr Martinez. he was kept an extra day due to elevated white blood cell count. he is tolerating po, pain is controlled and no complications post-op - Vitals & Intake/Output Vital Signs: Vital Signs Temperature 96.9 F 01/27/22 07:52 Pulse Rate 92 H 01/27/22 07:52 Respiratory Rate 19 01/27/22 07:52 Blood Pressure 117/63 01/27/22 07:52 O2 Sat by Pulse Oximetry 93 L 01/27/22 07:52 Intake & Output: Intake & Output 01/24/22 01/25/22 01/26/22 01/27/22 11:59 11:59 11:59 11:59 Intake Total 1699 790 Output Total 565 20 Balance 1134 770 Weight 94 kg 94 kg - Lab Result Diagrams: 01/27/22 04:45 01/25/22 09:00 Lab Results-Last 24 Hrs: Lab Results-Last 24 Hours 01/27/22 Range/Units 04:45 WBC 7.4 (4.0-10.5) x10^3/uL RBC 4.17 (4.1-5.6) x10^6/uL Hgb 12.9 (12.5-18.0) g/dL Hct 39.7 L (42-50) % MCV 95.2 (78-100) fL MCH 30.9 (26-32) pg MCHC 32.5 (32-36) g/dL RDW 13.2 (11.5-14.0) % Plt Count 180 (150-450) x10^3/uL MPV 11.2 H (7.5-11.0) fL Gran % 70.0 H (36.0-66.0) % Immature Gran % (Auto) 0.3 (0.00-0.4) % Nucleat RBC Rel Count 0.0 (0.00-0.1) % Eos # (Auto) 0.07 (0-0.5) x10^3/uL Immature Gran # (Auto) 0.02 (0.00-0.03) x10^3u/L Absolute Lymphs (auto) 1.65 (1.0-4.6) x10^3/uL Absolute Monos (auto) 0.44 (0.0-1.3) x10^3/uL Absolute Nucleated RBC 0.00 (0.00-0.01) x10^3u/L Lymphocytes % 22.4 L (24.0-44.0) % Monocytes % 6.0 (0.0-12.0) % Eosinophils % 1.0 (0.00-5.0) % Basophils % 0.3 (0.0-0.4) % Absolute Granulocytes 5.15 (1.4-6.9) x10^3/uL Basophils # 0.02 (0-0.4) x10^3/uL - Radiology Exams Ordered Rad Exams-Entire Visit: Radiology Procedures Category Date Time Status ABDOMEN AND PELVIS W/0 CONTRAS [CT] Stat Exams 01/25/22 08:55 Completed - Procedures and Test Procedures and Tests throughout Hospitalization: Therapy Orders & Screens 01/25/22 17:02 Oxygen NASAL CANNULA 2 lpm Comment: Diagnosis: acute appendicitis Discharge Exam General Appearance: no apparent distress, alert Respiratory Exam: normal breath sounds, lungs clear, No respiratory distress Cardiovascular Exam: regular rate/rhythm, normal heart sounds Gastrointestinal/Abdomen Exam: soft, other (dressing c/d/i, serous fluid in AISSATOU) Extremity Exam: normal inspection, normal range of motion Skin Exam: normal color, warm, dry Final Diagnosis/Problem List - Final Discharge Diagnosis/Problem (1) Acute appendicitis Current Visit: Yes Status: Acute Assessment & Plan: home today is ok with surgery Code(s): K35.80 - UNSPECIFIED ACUTE APPENDICITIS - Discharge Disposition: Home, Self-Care Condition: Stable Prescriptions: New Hydrocodone/Acetaminophen [Hydrocodone-Acetamin 5-325 mg] 1 tab PO Q4HPRN PRN #18 tablet MDD 6 PRN Reason: Pain Follow up with: ERIC MORRIS [Primary Care Provider] -
--- NOTE | 2022-01-27 08:33 | PCM.DCORD ---
- Discharge Disposition: Home, Self-Care Condition: Stable Prescriptions: New Hydrocodone/Acetaminophen [Hydrocodone-Acetamin 5-325 mg] 1 tab PO Q4HPRN PRN #18 tablet MDD 6 PRN Reason: Pain Ondansetron ODT 4 MG [Zofran Odt 4 mg] 4 mg PO Q6HPRN PRN #30 tab PRN Reason: Nausea Follow up with: ERIC MORRIS [Primary Care Provider] -
--- NOTE | 2022-01-27 09:58 | CONS ---
CONSULT DATE: 01/25/2022 HISTORY: The patient is a 41-year-old gentleman who had acute right lower quadrant pain for two or three days, had leukocytosis. CT scan consistent with acute appendicitis. PAST MEDICAL HISTORY: He denied any chronic illnesses. PAST SURGICAL HISTORY: He denied any prior abdominal surgery. HOME MEDICATIONS: None on a regular basis. ALLERGIES: NKDA. FAMILY HISTORY: Denies chronic heart disease according to the patient. SOCIAL HISTORY: He does not smoke anymore. REVIEW OF SYSTEMS: Fourteen systems reviewed per admission assessment, negative or noncontributory as above and per preadmission questionnaire. PHYSICAL EXAMINATION: GENERAL: No acute distress. HEENT: Sclera nonicteric. NECK: No JVD. CHEST: Equal excursion, nonlabored breathing. CVS: Regular rate and rhythm. ABDOMEN: Soft. Tenderness right lower quadrant. EXTREMITIES: No significant edema. NEURO: Alert, oriented, moving extremities grossly symmetrically. PSYCH: Appropriate mood and affect. IMPRESSION: Acute right lower quadrant pain, leukocytosis, suspicious CT scan for acute appendicitis. I feel the patient is in need of diagnostic laparoscopy, laparoscopic appendectomy possible open. General risk of bleeding or infection, risk of trocar injury or hernia, risk of bowel, bladder or blood vessel injury, risk of subsequent intra-abdominal abscess or fistula formation possibly requiring percutaneous or open drainage at a later date, perioperative risk of ileus or obstruction or ongoing infection. General risk of anesthesia, deep vein thrombosis, pulmonary embolism, pneumonia but not limited to. Consent obtained. Will proceed with diagnostic laparoscopy, laparoscopic appendectomy possible open when OR time available.
--- NOTE | 2022-01-27 10:17 | OP ---
SURGERY DATE/TIME: 01/25/2022 1502 PREOPERATIVE DIAGNOSIS: Acute appendicitis. POSTOPERATIVE DIAGNOSIS: Acute appendicitis question microperforation, ischemic tip of the appendix. PROCEDURE: Laparoscopic appendectomy and drainage of the right lower quadrant. SURGEON: Dr. Kana Martinez. ANESTHESIA: General. ESTIMATED BLOOD LOSS: Minimal. SPECIMEN: Appendix. INDICATIONS: As noted above. Risks and benefits explained in detail but not limited to, consent obtained. DESCRIPTION OF PROCEDURE AND FINDINGS: The patient is taken to the operating room. General anesthesia induced. Abdomen prepped and draped in usual sterile fashion. After official time out and no disagreement with planned procedure, a transverse incision made supraumbilical area. Fascia grasped and pulled upwards Veress needle inserted and tested with saline. Pneumoperitoneum accomplished insufflating from opening pressure of 0 to 15. A 5 mm bladeless port and camera were inserted without difficulty followed by a lower midline 5 mm port site and a 12 mm right upper abdomen port. There was no evidence of intra-abdominal injury secondary to trocar insertion. The appendix had a gangrenous tip question microperforation. It was quite adhesed to the small bowel. It took some time to carefully free this away from the colon and small bowel using a LigaSure device. Mesoappendix carefully taken down and divided with LigaSure device up to the base of the appendix with the cecum this was stapled with EndoGIA stapler. Appendix is placed in the provided sac pulled free and passed off. Port is replaced. Copious amount of irrigation accomplished in the right lower quadrant and pelvis irrigating until clear. Given the amount of infection and phlegmon in the area, it was felt he would benefit from temporary AISSATOU drain that can probably discontinued prior to discharge, will begin in the right lower quadrant. Will do a CBC tomorrow and his white count down approaching close to normal he will be able to get out of the hospital at that time. Otherwise continue IV antibiotics, follow serial white counts. Findings discussed with the family out in the waiting area. He was transferred to the recovery room in stable condition.
[2022-01-27 12:33] VITALS: BP 130/68; PULSE 97; O2SAT 95
== END 2022-01-27 16:23 | disposition home or self-care (01) ==
LOC: ED 08:36 → MED SURG 12:34
PROVIDERS: ADMIT Family Medicine; ATTEND Family Medicine
DX: K35.80 Unspecified acute appendicitis (principal); D72.829 Elevated white blood cell count, unspecified; Z20.828 Contact with and (suspected) exposure to other viral communicable diseases
CPT/HCPCS: 0241U; 36415; 44970; 74176; 80053; 81015; 82150; 83605; 83690; 85025; 94760; 96365; 96374; 96375; 96376; 99283; G0378; J0694; J1100; J1170; J1885; J2405; J2704; J3010; L0625; Q0162; A9270-GY